=== PATIENT | male | born 1960 | race Caucasian/White ===

== ENCOUNTER 2016-09-15 23:56 | Emergency (ER) | payer MEDICARE, OTHER ==
--- NOTE | ~2016-09-15 | CR72 ---
[facility] A Service of [facility] RADIOLOGY TEXT RESULTS PATIENT: BEENA REINA LOCATION: [facility] : 60 UNIT #: [id number] AGE: [address]: Raúl Machuca MD SEX: M ORDER DR: [id number] [place], [place] [address] [id number] E MR#: [id number] #: [id number] NAME: BEENA REINA : 1960 SEX: M STUDY DATE/TIME: 09/16/2016 0:42 UNIT: [facility] ROOM: STUDY DESCRIPTION: CR Chest Single View Portable Attending Physician: Bakari Machuca M.D. Ordering Physician: Ed Tyron Washington M.D. Primary Care Physician: Ruma Bhakta M.D. MEDICAL IMAGING REPORT This report is preliminary unless electronic signature is present EXAM Portable chest INDICATION Left-sided chest pain, shortness of air for the past 2 days. PROCEDURE Frontal view chest. COMPARISON 03/07/2007 FINDINGS Heart size within normal limits. No dense consolidation. No pneumothorax. Ovoid peripheral opacity in the lateral left lung base is new. IMPRESSION There is a small area of ovoid opacity in the lateral left lung base that is new compared with 2007. It could represent some loculated pleural fluid or possibly a rib abnormality. Otherwise, no acute findings elsewhere in the chest. Dictated by... Bakari Lynch M.D. THIS IS AN ELECTRONICALLY VERIFIED REPORT Bakari Lynch M.D. at 09/16/2016 9:58 PM EED/jayden TD: 09/16/2016 09:22 JOB #: [id number] [facility] A Service [facility] RADIOLOGY TEXT RESULTS PATIENT: BEENA REINA LOCATION: [facility] : 60 UNIT #: [id number] AGE: [address]: Raúl Machuca MD SEX: M ORDER DR: MEDICAL IMAGING REPORT Page 1 of 1 COPY
--- NOTE | ~2016-09-15 | EKG ---
PATIENT: BEENA REINA UNIT #: [id number] Ventricular Rate: 99 BPM Atrial Rate: 99 BPM P-R Interval: 142 ms QRS Duration: 82 ms Q-T Interval: 360 ms QTC Calculation(Bezet): 462 ms P [place]: 52 degrees Calculated R [place]: 26 degrees Calculated T [place]: 50 degrees Diagnosis Line: Normal sinus rhythm Diagnosis Line: Normal ECG Diagnosis Line: No previous ECGs available Diagnosis Line: Confirmed by NELLI MCKEON MD ([id number]) on Diagnosis Line: 09/18/2016 9:37:04 PM INTERPRETING MD: MIKE JACKSON
[~2016-09-15 23:56] MED LIST: ACETAMINOPHEN PO; CIPRO PO; FLAGYL PO; FLEXERIL10 MG PO; LORTAB 10-5001 EACH PO; ORUDIS75 M1 PO; PHENERGAN PO; PRENATAL MULITV1 TAB PO; PRILOSEC PO; PROTONIX PO; TYLENOL #3 PO
[2016-09-16 01:19] LABS: BASOPHIL% 0.2 % (0-2.5); EOSINOPHIL# 0.1 X10e3 (0-0.7); EOSINOPHIL% 2.3 % (0.0-7.0); HEMATOCRIT 37.7 % (38.0-50.0); HEMOGLOBIN 12.8 gm/dL (13.0-16.0); LYMPHOCYTE# 1.3 X10e3 (1.0-3.5); LYMPHOCYTE% 25.9 % (17.0-45.0); MEAN CELL VOLUME 91.2 FL (83-96); MEAN PLATELET VOLUME 8.2 FL (6.5-11.5); MONOCYTE# 0.3 X10e3 (0-1.0); NEUTROPHIL# 3.2 X10e3 (1.5-7.1); NEUTROPHIL% 64.6 % (40-75); PLATELET COUNT 167 X10e3 (140-420); RED BLOOD COUNT 4.14 X10e (3.90-5.60); RED CELL DISTRIBUTION WIDTH 13.6 % (11.0-15.5)
[2016-09-16 01:22] LABS: DIFF IND NO
[2016-09-16 01:23] LABS: POC - CKMB 2.5 ng/mL (0.0-7.9); POC - TROPONIN <0.05 ng/mL (<=0.05)
[2016-09-16 01:42] LABS: BUN/CREATININE RATIO 7.33; CALCIUM SERUM 8.7 mg/dL (8.4-10.2); CREATININE SERUM 1.5 mg/dL (0.6-1.4); GLOM FILT RATE Estimated 51.3 mL/min (>60); POTASSIUM 3.5 mmol/L (3.5-5.1)
== END 2016-09-16 02:23 | disposition home or self-care (01) ==
LOC: CED 23:56
PROVIDERS: Emergency Medicine
DX: S20.219A Contusion of unspecified front wall of thorax, initial encounter (principal); F17.210 Nicotine dependence, cigarettes, uncomplicated; F31.9 Bipolar disorder, unspecified; K21.9 Gastro-esophageal reflux disease without esophagitis; X58.XXXA Exposure to other specified factors, initial encounter; Y92.9 Unspecified place or not applicable
CPT/HCPCS: 36415; 71010; 80048; 82553; 84484; 85025; 93005; 96374; 99284; J1885

== ENCOUNTER 2016-10-02 09:45 | Emergency (ER) | payer MEDICARE, OTHER ==
--- NOTE | ~2016-10-02 | CR72 ---
[facility] A Service of [facility] RADIOLOGY TEXT RESULTS PATIENT: BEENA REINA LOCATION: [facility] : 60 UNIT #: [id number] AGE: [address]: Albino Vang MD SEX: M ORDER DR: [id number] [facility] [address] [place], [place] [address] [id number] E MR#: [id number] Acc #: [id number] NAME: BEENA REINA. : 1960 SEX: M STUDY DATE/TIME: 10/02/2016 10:38 UNIT: [facility] ROOM: STUDY DESCRIPTION: CR Chest Single View Portable Attending Physician: Albino Vang M.D. Ordering Physician: Albino Vang M.D. Primary Care Physician: Ruma Bhakta M.D. MEDICAL IMAGING REPORT This report is preliminary unless electronic signature is present EXAM AP portable chest 10/02/2069 at 10:38 HISTORY Left chest wall and left rib pain with shortness of breath and COPD. Patient states he fell in May 2016. Additional history of COPD, AIDS, bipolar disorder, smoking history. COMPARISON AP portable chest 09/16/2016 FINDINGS There is an extra pulmonary or pleural-based ovoid density in the lower left lateral chest measuring nearly 17 mm craniocaudal and 2.6 cm in length. It appears slightly larger than on the 09/16/2016 study where it was initially described, but is a new finding since the more remote 03/07/2007 chest radiograph. There are multiple old left rib fractures, including the left sixth and seventh ribs. There is a questionable subacute left ninth rib fracture anterolaterally. The lungs appear free of acute airspace disease. Normal heart size. No visible pneumothorax. Presumed surgical change in the cervical spine. IMPRESSION 1. Questionable subacute left ninth rib fracture anterolaterally. 2. There is a pleural-based density in the left lateral lower thorax which appears slightly larger than on 09/16/2016. In the context of a history of rib trauma, this may simply represent increased loculated pleural fluid or pleural-based hematoma. Underlying pleural-based soft tissue mass cannot be excluded. Given that it has not appreciably resolved since 09/16/2016, consider correlation with CT chest with contrast to evaluate for underlying solid or soft tissue-based pleural mass. 3. Clear lungs. No pneumothorax. [facility]. [facility] A Service of [facility] RADIOLOGY TEXT RESULTS PATIENT: BEENA REINA [facility] [id number] : 60 UNIT #: [id number] AGE: [address]: Albino Vang MD SEX: M ORDER DR: Dictated by... Valentina Batres M.D. THIS IS AN ELECTRONICALLY VERIFIED REPORT Valentina Batres M.D. at 10/03/2016 8:46 AM BOBBY/nate TD: 10/02/2016 12:38 JOB #: [id number] MEDICAL IMAGING REPORT Page 1 of 1 COPY
== END 2016-10-02 12:36 | disposition home or self-care (01) ==
LOC: CED 09:45
DX: S20.219A Contusion of unspecified front wall of thorax, initial encounter (principal); F17.200 Nicotine dependence, unspecified, uncomplicated; Z88.2 Allergy status to sulfonamides
CPT/HCPCS: 71010; 96372; 99284; J1885

== ENCOUNTER 2016-10-22 03:24 | Emergency (ER) | payer MEDICARE, OTHER ==
--- NOTE | ~2016-10-22 | CR72 ---
[facility] A Service of [facility] RADIOLOGY TEXT RESULTS PATIENT: BEENA REINA LOCATION: [facility] : 60 UNIT #: [id number] AGE: [address]: Raúl Garcia MD SEX: M ORDER DR: [id number] [facility] [address] [place], [place] [address] [id number] E MR#: [id number] Acc #: [id number] NAME: BEENA REINA : 1960 SEX: M STUDY DATE/TIME: 10/22/2016 4:06 UNIT: [facility] ROOM: STUDY DESCRIPTION: CR Chest Single View Portable Attending Physician: Raúl Garcia M.D. Ordering Physician: Raúl Garcia M.D. Primary Care Physician: Ruma Bhakta M.D. MEDICAL IMAGING REPORT This report is preliminary unless electronic signature is present EXAM Single view chest INDICATIONS Fever, shortness of air and cough for 1-2 days. COMPARISON Single portable AP view of the chest compared to 10/02/2016. FINDINGS Heart and mediastinal contours are unchanged. No new pulmonary opacities. There is an ovoid nodule in the left hemithorax, compatible with a diaphragmatic hernia. Appearance is unchanged from the CT scan of 08/23/2011. IMPRESSION 1. No acute cardiopulmonary findings. 2. Small lateral diaphragmatic hernia containing a small amount of abdominal fat in the left lower hemithorax. Dictated by... Brock Edwards M.D. THIS IS AN ELECTRONICALLY VERIFIED REPORT Brock Edwards M.D. at 10/22/2016 10:28 PM [place] TD: 10/22/2016 12:52 JOB #: [id number] MEDICAL IMAGING REPORT Page 1 of 1 COPY
--- NOTE | ~2016-10-22 | EKG ---
PATIENT: BEENA REINA UNIT #: [id number] Ventricular Rate: 128 BPM Atrial Rate: 128 BPM P-R Interval: 136 ms QRS Duration: 86 ms Q-T Interval: 308 ms QTC Calculation(Bezet): 449 ms P [place]: 53 degrees Calculated R [place]: 23 degrees Calculated T [place]: 54 degrees Diagnosis Line: Sinus tachycardia Diagnosis Line: Otherwise normal ECG Diagnosis Line: When compared with ECG of 16-SEP-2016 00:03, Diagnosis Line: Non-specific change in ST segment in Inferior Diagnosis Line: leads Diagnosis Line: Confirmed by NELLI MCKEON MD ([id number]) on Diagnosis Line: 10/23/2016 11:06:45 AM INTERPRETING MD: MIKE JACKSON
[2016-10-22 04:47] LABS: POC - CKMB 2.8 ng/mL (0.0-7.9); POC - TROPONIN <0.05 ng/mL (<=0.05)
[2016-10-22 04:52] LABS: BASOPHIL% 0.3 % (0-2.5); EOSINOPHIL% 0.6 % (0.0-7.0); HEMATOCRIT 36.4 % (38.0-50.0); HEMOGLOBIN 12.3 gm/dL (13.0-16.0); LYMPHOCYTE# 0.2 X10e3 (1.0-3.5); LYMPHOCYTE% 4.5 % (17.0-45.0); MEAN CELL VOLUME 89.3 FL (83-96); MEAN CORPUSCULAR HEMOGLOBIN 30.1 PG (28-34); MEAN CORPUSCULAR HGB CONC 33.7 g/dL (30-36); MEAN PLATELET VOLUME 8.6 FL (6.5-11.5); MONOCYTE% 0.9 % (3.0-12.0); NEUTROPHIL# 4.1 X10e3 (1.5-7.1); NEUTROPHIL% 93.7 % (40-75); PLATELET COUNT 118 X10e3 (140-420); RED BLOOD COUNT 4.07 X10e (3.90-5.60); RED CELL DISTRIBUTION WIDTH 13.5 % (11.0-15.5); WHITE BLOOD COUNT 4.4 X10e3 (4.0-10.5)
[2016-10-22 04:53] LABS: U HYALINE CASTS AUWI 0-2 /[LPF]; URBCS1 AUWI 0-2 /[HPF] (0-2); URINE APPEARANCE CLEAR; URINE BACTERIA AUWI NEG (NEGATIVE); URINE BLOOD NEG (NEG); URINE COLOR DK YELLOW; URINE GLUCOSE NEG (NEG); URINE KETONE TRACE (NEG); URINE LEUKOCYTE ESTERASE TRACE (NEG); URINE NITRATE NEG (NEG); URINE PROTEIN TRACE (NEG); URINE SOURCE CLEAN CATCH; URINE SPECIFIC GRAVITY 1.021 (1.003-1.035); URINE SQUAMOUS EPITHELIAL CELL NONE SEEN /[HPF]; UWBCS1 AUWI 0-2 (0-5)
[2016-10-22 04:54] LABS: DIFF IND NO
[2016-10-22 04:56] LABS: CULTURE INDICATED? NO; URINE BILIRUBIN NEG (NEG)
[2016-10-22 05:28] LABS: ALBUMIN SERUM 3.6 g/dL (3.5-5.0); BILIRUBIN, DIRECT 0.3 mg/dL (0.0-0.2); BILIRUBIN,INDIRECT 0.5 mg/dL (0.0-0.9); BILIRUBIN,TOTAL 0.8 mg/dL (0.2-2.0); BUN/CREATININE RATIO 13.07; CALCIUM SERUM 8.8 mg/dL (8.4-10.2); CREATININE SERUM 1.3 mg/dL (0.6-1.4); MAGNESIUM 1.2 mg/dL (1.6-3.0); PROTEIN TOTAL SERUM 7.3 g/dL (6.0-8.3)
[2016-10-22 05:29] LABS: POTASSIUM 2.9 mmol/L (3.5-5.1)
[2016-10-22 05:31] LABS: PHOSPHOROUS 0.9 mg/dL (2.5-4.6)
[2016-10-22 05:47] LABS: PARTIAL THROMBOPLASTIN TIME 23.7 SECONDS (23.5-31.3); PROTHROMBIN TIME (PATIENT) 11.1 SECONDS (10.0-11.7)
[2016-10-22 05:53] LABS: POC - CKMB 1.4 ng/mL (0.0-7.9); POC - TROPONIN <0.05 ng/mL (<=0.05)
== END 2016-10-22 08:35 | disposition left against medical advice (07) ==
LOC: CED 03:24
PROVIDERS: Emergency Medicine
DX: E87.6 Hypokalemia (principal); E83.39 Other disorders of phosphorus metabolism; E83.42 Hypomagnesemia; R50.9 Fever, unspecified; F31.9 Bipolar disorder, unspecified; K21.9 Gastro-esophageal reflux disease without esophagitis; F17.200 Nicotine dependence, unspecified, uncomplicated
CPT/HCPCS: 36415; 71010; 80048; 80076; 81003; 82150; 82553; 83605; 83690; 83735; 84100; 84484; 85025; 85610; 85730; 87040; 93005; 96360; 99285; J1580; J3370

== ENCOUNTER 2016-11-05 02:37 | Emergency (ER) | payer MEDICARE, OTHER ==
[~2016-11-05] VITALS: Ht 172.7 cm; Wt 80.7 kg
--- NOTE | ~2016-11-05 | EKG ---
PATIENT: BEENA REINA UNIT #: [id number] Ventricular Rate: 84 BPM Atrial Rate: 84 BPM P-R Interval: 146 ms QRS Duration: 80 ms Q-T Interval: 388 ms QTC Calculation(Bezet): 458 ms P [place]: 54 degrees Calculated R [place]: 24 degrees Calculated T [place]: 51 degrees Diagnosis Line: Normal sinus rhythm Diagnosis Line: Normal ECG Diagnosis Line: When compared with ECG of 22-OCT-2016 04:17, Diagnosis Line: Vent. rate has decreased BY 44 BPM Diagnosis Line: T wave amplitude has increased in Anterolateral Diagnosis Line: leads Diagnosis Line: Confirmed by JAMMIE LUCIO MD ([id number]) on Diagnosis Line: 11/05/2016 5:43:06 PM INTERPRETING MD: KHADIJAH JACKSON
--- NOTE | ~2016-11-05 | CR72 ---
[facility] A Service of [facility] RADIOLOGY TEXT RESULTS PATIENT: BEENA REINA LOCATION: [facility] : 60 UNIT #: [id number] AGE: [address]: Raúl Garcia MD SEX: M ORDER DR: [id number] [place], [place] [address] [id number] E MR#: [id number] Acc #: [id number] NAME: BEENA REINA : 1960 SEX: M STUDY DATE/TIME: 11/05/2016 5:07 UNIT: [facility] ROOM: STUDY DESCRIPTION: CR Chest Single View Portable Attending Physician: Raúl Garcia M.D. Ordering Physician: Raúl Garcia M.D. Primary Care Physician: Ruma Bhakta M.D. MEDICAL IMAGING REPORT This report is preliminary unless electronic signature is present EXAM Portable chest HISTORY Shortness of air since yesterday. TECHNIQUE Frontal view of the chest. COMPARISON 10/22/2016. FINDINGS Heart size is normal. No dense consolidation, visible pleural fluid or pneumothorax. Left lateral diaphragmatic hernia, similar to the prior but not as well seen. IMPRESSION No active process. No change from 10/22/2016. Dictated by... Bakari Lynch M.D. THIS IS AN ELECTRONICALLY VERIFIED REPORT Bakari Lynch M.D. at 11/05/2016 10:25 PM EED/pcl TD: 11/05/2016 09:59 JOB #: [id number] [facility] A Service of [facility] RADIOLOGY TEXT RESULTS PATIENT: BEENA REINA LOCATION: [facility] : 60 UNIT #: [id number] AGE: [address]: Raúl Garcia MD SEX: M ORDER DR: MEDICAL IMAGING REPORT Page 1 of 1 COPY
== END 2016-11-05 06:05 | disposition home or self-care (01) ==
LOC: CED 02:37
DX: R07.89 Other chest pain (principal); R06.02 Shortness of breath; J44.9 Chronic obstructive pulmonary disease, unspecified; F17.200 Nicotine dependence, unspecified, uncomplicated; Z88.2 Allergy status to sulfonamides
CPT/HCPCS: 71010; 93005; 94640; 99285